=== PATIENT | female | born 1985 | race Caucasian/White ===

== ENCOUNTER 2018-08-03 18:34 | Emergency (ER) | payer MEDICAID ==
[2018-08-03 18:54] VITALS: BP 125/75
[2018-08-03] MEDS ORDERED: Albuterol/Ipratropium 3.0-0.5 MG/3 ML Neb Soln NEB ONE (19:05)
--- NOTE | 2018-08-03 19:16 | EDM.PDOC ---
ED HPI GENERAL MEDICAL PROBLEM - General Chief Complaint: Respiratory Problem Stated Complaint: SOB Time Seen by Provider: 08/03/18 18:55 Source of Information: Reports: Patient History Limitations: Reports: No Limitations - History of Present Illness INITIAL COMMENTS - FREE TEXT/NARRATIVE: 32-year-old female who is been short of breath and wheezing for the last 4 days , no significant cold symptoms but has a persistent cough and generalized body aches. Denies nausea or vomiting. She ran out of her inhaler 2 weeks ago, she typically goes through 3 albuterol inhalers per year and does not use them every day. She is a smoker. Onset: Gradual Duration: Day(s): (4 days) Associated Symptoms: Reports: Cough, Shortness of Breath, Other (Generalized body aches) denies pain Pain Score (Numeric/FACES): 0 - Related Data Allergies Allergy/AdvReac Type Severity Reaction Status Date / Time naproxen Allergy Vomiting Verified 08/03/18 18:53 Home Meds: Home Meds Naproxen Sodium [Aleve] 220 mg PO Q3HR 11/19/14 [History] Past Medical History HEENT History: Reports: Impaired Vision, Other (See Below) Other HEENT History: tooth pain, ? 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 DOCKWORKER History: 3 live births Musculoskeletal History: Reports: Fracture, Other (See Below) Other Musculoskeletal History: broken right ankle - Past Surgical History Musculoskeletal Surgical History: Reports: Other (See Below) Other Musculoskeletal Surgeries/Procedures:: ankle surgery Social & Family History - Tobacco Use Smoking Status *Q: Current Every Day Smoker Years of Tobacco use: 16 Packs/Tins Daily: 1.5 - Caffeine Use Caffeine Use: Reports: Coffee, Energy Drinks - Recreational Drug Use Recreational Drug Use: Yes Drug Use in Last 12 Months: No Recreational Drug Type: Reports: Marijuana/Hashish ED ROS GENERAL - Review of Systems Review Of Systems: See Below Constitutional: Reports: Malaise. Denies: Fever, Chills HEENT: Denies: Ear Pain, Throat Pain Respiratory: Reports: Shortness of Breath, Wheezing, Cough. Denies: Sputum Cardiovascular: Denies: Chest Pain : Reports: No Symptoms Musculoskeletal: Reports: Muscle Pain (Generalized muscle aches) Skin: Reports: No Symptoms Neurological: Denies: Headache ED EXAM, GENERAL - Physical Exam Exam: See Below Exam Limited By: No Limitations General Appearance: Alert, No Apparent Distress Nose: Normal Inspection Throat/Mouth: Normal Inspection Respiratory/Chest: No Respiratory Distress, Wheezing Cardiovascular: Regular Rate, Rhythm, Tachycardia Extremities: Normal Inspection Neurological: Alert, Oriented Psychiatric: Normal Affect, Normal Mood Skin Exam: Warm, Dry Course - Vital Signs Last Recorded V/S: Last Vital Signs Temp 96.8 F 08/03/18 18:55 Pulse 112 H 08/03/18 18:55 Resp 24 H 08/03/18 18:55 BP 125/75 08/03/18 18:55 Pulse Ox 94 L 08/03/18 18:55 - Orders/Labs/Meds Orders: Active Orders 24 hr Category Date Time Status RT Aerosol Therapy [RC] ASDIRECTED Care 08/03/18 19:05 Active Meds: Medications Discontinued Medications Generic Name Dose Route Start Last Admin Trade Name Freq PRN Reason Stop Dose Admin Albuterol/Ipratropium 3 ml 08/03/18 19:05 08/03/18 19:13 Duoneb 3.0-0.5 Mg/3 Ml NEB 08/03/18 19:06 3 ml ONETIME ONE Administration Methylprednisolone Sodium Succinate 125 mg 08/03/18 19:34 08/03/18 19:51 Solu-Medrol IVPUSH 08/03/18 19:35 125 mg ONETIME ONE Administration - Re-Assessments/Exams Free Text/Narrative Re-Assessment/Exam: 08/03/18 19:17 Duoneb. 08/03/18 19:53 Patient had significant improvement after the DuoNeb but still some wheezing and discomfort. She was given 125 mg of IV Solu-Medrol, and will be discharged on 50 mg of prednisone daily for the next 3-6 days. Also given a fresh albuterol inhaler. She can return if worsening despite treatment Departure - Departure Time of Disposition: 20:33 Disposition: Home, Self-Care 01 Condition: Good Clinical Impression: Asthma with exacerbation Qualifiers: Asthma severity: moderate Asthma persistence: persistent Qualified Code(s): J45.41 - Moderate persistent asthma with (acute) exacerbation - Discharge Information Instructions: Asthma, Adult, [id number] Referrals: Bar Castano MD [Primary Care Provider] - Forms: ED Department Discharge Care Plan Goals: Take 5 pills of prednisone with your first meal of the day for the next 3-6 days. Use your inhaler as needed. Return if worsening despite treatment. - My Orders Last 24 Hours: My Active Orders 08/03/18 19:05 RT Aerosol Therapy [RC] ASDIRECTED - Assessment/Plan Last 24 Hours: My Active Orders 08/03/18 19:05 RT Aerosol Therapy [RC] ASDIRECTED
[2018-08-03] MEDS ORDERED: methylPREDNISolone Sodium Succinate 125 MG/2 ML SDV IVPUSH ONE (19:34)
--- NOTE | 2018-08-03 19:36 | CRLCR ---
Indication: Shortness of breath. Technique: PA and lateral views the chest were obtained. Comparison: None Findings: The heart is normal in size. The lungs are clear. No infiltrate, pleural effusion, or pneumothorax is identified. Impression: No acute cardiopulmonary process. Dictated by Alysha Matamoros MD @ Aug 03 2018 7:33PM Signed by Dr. Alysha Matamoros @ Aug 03 2018 7:34PM
== END 2018-08-03 20:33 | disposition home or self-care (01) ==
LOC: JP.ED 18:34
DX: J45.41 Moderate persistent asthma with (acute) exacerbation (principal); F17.210 Nicotine dependence, cigarettes, uncomplicated; Z88.8 Allergy status to other drugs, medicaments and biological substances
CPT/HCPCS: 71046; 87804; 94640; 96374; 99285; J2930; J7620-GY

== ENCOUNTER 2020-02-11 18:12 | Emergency (ER) | payer MEDICAID ==
[2020-02-11 18:50] VITALS: BP 136/89; PULSE 103
[2020-02-11] MEDS ORDERED: HYDROmorphone 0.5 MG/0.5 ML Syringe IM ONE (18:57)
--- NOTE | 2020-02-11 19:01 | EDM.PDOC ---
ED HPI GENERAL MEDICAL PROBLEM - General Chief Complaint: ENT Problem Stated Complaint: MOUTH PAIN Time Seen by Provider: 02/11/20 18:15 Source of Information: Reports: Patient History Limitations: Reports: No Limitations - History of Present Illness INITIAL COMMENTS - FREE TEXT/NARRATIVE: chief complaint: dental abscess This is a 34 year old female present to ER with her SO, reports 3 days ago ate a potato chip and the chip got lodged in behind her tooth. now has a lump on the roof of her mouth. very painful. Onset: Gradual Duration: Day(s): (3) Location: Reports: Face (dental abscess) Quality: Reports: Ache, Throbbing Improves with: Reports: None Worsens with: Reports: None Associated Symptoms: Reports: No Other Symptoms Right Upper Jaw Pain Score (Numeric/FACES): 10 - Related Data Allergies Allergy/AdvReac Type Severity Reaction Status Date / Time naproxen Allergy Vomiting Verified 08/03/18 18:53 Home Meds: Home Meds Naproxen Sodium [Aleve] 220 mg PO Q3HR PRN 11/19/14 [History] Acetaminophen [Mapap] 1,500 mg PO Q6H PRN 02/11/20 [History] Albuterol Sulfate [Albuterol Sulfate Hfa] 8.5 gm IH Q4H PRN 02/11/20 [History] Past Medical History HEENT History: Reports: Impaired Vision, Other (See Below) Other HEENT History: tooth pain, ? 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 CLERK History: 3 live births Musculoskeletal History: Reports: Fracture, Other (See Below) Other Musculoskeletal History: broken right ankle - Past Surgical History Musculoskeletal Surgical History: Reports: Other (See Below) Other Musculoskeletal Surgeries/Procedures:: ankle surgery Social & Family History - Tobacco Use Smoking Status *Q: Current Every Day Smoker Years of Tobacco use: 15 Packs/Tins Daily: 0.7 - Caffeine Use Caffeine Use: Reports: Coffee, Energy Drinks - Recreational Drug Use Recreational Drug Use: No - Living Situation & Occupation Living situation: Reports: with Significant Other (stay at home Mom.) ED ROS ENT - Review of Systems Review Of Systems: See Below Constitutional: Reports: Other (dental pain) HEENT: Reports: Dental Pain, Sinus Problem (right sinus is painful. ) Respiratory: Reports: No Symptoms Cardiovascular: Reports: No Symptoms Endocrine: Reports: No Symptoms Musculoskeletal: Reports: No Symptoms Skin: Reports: No Symptoms Neurological: Reports: No Symptoms Psychiatric: Reports: No Symptoms Hematologic/Lymphatic: Reports: No Symptoms Immunologic: Reports: No Symptoms ED EXAM, ENT - Physical Exam Exam: See Below Exam Limited By: No Limitations General Appearance: Alert, WD/WN, Anxious, Mild Distress Eye Exam: Bilateral Eye: Normal Inspection Ears: Normal External Exam Nose: Normal Inspection, Other (right maxillary sinus pain without facial edema, redness) Mouth/Throat: Normal Lips, Dental Abcess, Dental Pain, Dental Tenderness, Other (large cavity noted to rigth molars. teeth in with multi cavities. ) Head: Atraumatic, Normocephalic, Facial Tenderness (right maxillary sinus) Neck: Normal Inspection, Supple, Non-Tender, Full Range of Motion Respiratory/Chest: No Respiratory Distress Neurological: Alert, Oriented, CN II-XII Intact, Normal Cognition, Normal Gait, Normal Reflexes, No Motor/Sensory Deficits Psychiatric: Normal Affect, Normal Mood Skin: Warm, Dry, Intact, Normal Color, No Rash Lymphatic: No Adenopathy ED ENT PROCEDURES - Additional/Other Procedure(s) Other (Free Text) Procedure(s): dental abscess to hard palate -discussed procedure with Ms. Reneemirna, agrees to I&D -pre-medicated with Dilaudid 0.5mg IM -Tdap within the past 10 years. -size 1 cm raised oblong shape, firm and tender to palpation -injected with 1 ml of Lidocaine 1 % without eppi -lanced with #11 blade scalpel, immediate release of mucopurulent discharge 2-3 ml -scant bleeding discussed medications and follow up care. plans to follow up with Dental Clinic in morning. Course - Vital Signs Last Recorded V/S: Last Vital Signs Temp 36.1 C 02/11/20 18:40 Pulse 103 H 02/11/20 18:40 Resp 16 02/11/20 18:40 BP 136/89 02/11/20 18:40 Pulse Ox 97 02/11/20 18:40 - Orders/Labs/Meds Meds: Medications Discontinued Medications Generic Name Dose Route Start Last Admin Trade Name Freq PRN Reason Stop Dose Admin Hydromorphone HCl 0.5 mg 02/11/20 18:57 Dilaudid IM 08/18/20 18:58 ONETIME ONE Lidocaine HCl 5 ml 02/11/20 18:55 02/11/20 19:03 Xylocaine-Mpf 1% INJECT 02/11/20 18:56 1 ml ONETIME ONE Administration - Re-Assessments/Exams Free Text/Narrative Re-Assessment/Exam: 02/11/20 19:26 I&D- pressure released, feeling better. Departure - Departure Time of Disposition: 19:27 Disposition: Home, Self-Care 01 Condition: Good Clinical Impression: Dental abscess - Discharge Information *PRESCRIPTION DRUG MONITORING PROGRAM REVIEWED*: Not Applicable *COPY OF PRESCRIPTION DRUG MONITORING REPORT IN PATIENT SUYAPA: Not Applicable Instructions: Dental Abscess, [id number] Referrals: Keyla Osorio CNM [Primary Care Provider] - Forms: ED Department Discharge Care Plan Goals: Dental Abscess -Augmentin 875 mg po two times a day for 10 days -Hydrocodone 5-325mg take one every 4 to 6 hours as needed for pain #6 -Referral to Dental Clinic in am for evaluation by Dentist -soft diet -take medication as directed -return to ER for increased pain,fever, facial swelling, nausea, vomiting or not improved. Sepsis Event Note (ED) - Evaluation Sepsis Screening Result: No Definite Risk - Focused Exam Vital Signs: Vital Signs Temp Pulse Resp BP Pulse Ox 02/11/20 18:40 36.1 C 103 H 16 136/89 97 - Problem List & Annotations (1) Dental abscess SNOMED Code(s): 950734382 Code(s): K04.7 - PERIAPICAL ABSCESS WITHOUT SINUS Status: Acute Priority: High Current Visit: Yes - Problem List Review Problem List Initiated/Reviewed/Updated: Yes - Assessment/Plan Plan: Dental Abscess -Augmentin 875 mg po two times a day for 10 days -Hydrocodone 5-325mg take one every 4 to 6 hours as needed for pain #6 -Referral to Dental Clinic in am for evaluation by Dentist -soft diet -rinse mouth every 1-2 hours with warm salt water rinses for comfort -take medication as directed -return to ER for increased pain,fever, facial swelling, nausea, vomiting or not improved.
== END 2020-02-11 19:30 | disposition home or self-care (01) ==
LOC: JP.ED 18:12
DX: K04.7 Periapical abscess without sinus (principal); J45.909 Unspecified asthma, uncomplicated; F17.210 Nicotine dependence, cigarettes, uncomplicated; Z88.8 Allergy status to other drugs, medicaments and biological substances
CPT/HCPCS: 42000; 96372; 99282; 99283; J1170; J2001

== ENCOUNTER 2022-10-02 19:17 | Observation (INO) | payer OTHER, MEDICAID ==
[2022-10-02] MEDS ORDERED: Sodium Chloride 0.9% 10 ML Syringe FLUSH PRN (19:22)
[2022-10-02] MEDS ORDERED: Propofol 200 MG/20 ML SDV ONE (20:18)
[2022-10-02] MEDS ORDERED: Pantoprazole 40 MG Vial IV ONE (21:01)
[2022-10-02] MEDS ORDERED: Acetaminophen 325 MG Tab PO PRN (21:01)
[2022-10-02] MEDS ORDERED: Docusate Sodium 100 MG Cap PO PRN (21:01)
[2022-10-02] MEDS ORDERED: LORazepam 2 MG/ML SDV IV PRN (21:01)
[2022-10-02] MEDS ORDERED: Ondansetron 4 MG Tab.DIS PO PRN (21:01)
[2022-10-02] MEDS ORDERED: Albuterol/Ipratropium 3.0-0.5 MG/3 ML Neb Soln NEB PRN (21:01)
[2022-10-02] MEDS ORDERED: Albuterol 0.083% 2.5 MG/3 ML Neb Soln NEB PRN (21:01)
[2022-10-02 21:07] LABS: CORONAVIRUS COVID-19 NAA NEGATIVE (NEGATIVE)
[2022-10-02] MEDS ORDERED: Melatonin 3 MG Tab PO PRN (21:09)
[2022-10-02] MEDS ORDERED: Sodium Chloride 0.9% 1,000 ML IV SCH (21:15)
[2022-10-02] MEDS: oxyCODONE 5 MG Tab PO PRN (22:18)
[2022-10-03] MEDS: fentaNYL 50 MCG/ML SDV IVPUSH PRN ×2 (00:03→05:42)
[2022-10-03] MEDS: oxyCODONE 5 MG Tab PO PRN ×2 (02:29→07:18)
[2022-10-03] MEDS ORDERED: ceFAZolin 2 GM in Premix Bag 1 BAG IV ONE (09:00)
[2022-10-03] MEDS ORDERED: Propofol 200 MG/20 ML SDV ONE (09:03)
[2022-10-03] MEDS ORDERED: Glycopyrrolate 0.2 MG/ML 5 ML MDV ONE (09:03)
[2022-10-03] MEDS ORDERED: fentaNYL 250 MCG/5 ML SDV ONE ×2 (09:03→10:39)
[2022-10-03] MEDS ORDERED: Neostigmine Methylsulfate 1 MG/ML 5 ML Syringe ONE (09:03)
[2022-10-03] MEDS ORDERED: Rocuronium 50 MG/5 ML Vial ONE (09:03)
[2022-10-03] MEDS ORDERED: Dexamethasone 4 MG/ML SDV ONE (09:03)
[2022-10-03] MEDS ORDERED: Ondansetron 4 MG/2 ML SDV ONE (09:03)
[2022-10-03] MEDS ORDERED: ceFAZolin 2 GM in Sodium Chloride 0.9% 50 ML IV ONE (09:04)
[2022-10-03] MEDS ORDERED: Bupivacaine 0.5% 30 ML SDV ONE (09:29)
[2022-10-03] MEDS ORDERED: Albuterol/Ipratropium 3.0-0.5 MG/3 ML Neb Soln NEB ONE (10:05)
[2022-10-03] MEDS ORDERED: Labetalol 20 MG/4 ML Syringe ONE (10:32)
[2022-10-03] MEDS ORDERED: Lactated Ringers 1,000 ML ONE (10:44)
[2022-10-03] MEDS ORDERED: Bupivacaine 0.5% 30 ML SDV INJECT ONE (12:00)
[2022-10-03] MEDS ORDERED: Sodium Chloride 0.9% 1,000 ML IV SCH (12:45)
[2022-10-03 13:38] VITALS: BP 114/86; PULSE 100
== END 2022-10-03 15:00 | disposition home or self-care (01) ==
LOC: JP.ED 19:17 → JP.MS 20:59
PROVIDERS: ADMIT Internal Medicine; ATTEND Specialist
DX: S82.842A Displaced bimalleolar fracture of left lower leg, initial encounter for closed fracture (principal); S93.432A Sprain of tibiofibular ligament of left ankle, initial encounter; F17.210 Nicotine dependence, cigarettes, uncomplicated; J45.20 Mild intermittent asthma, uncomplicated; Z79.899 Other long term (current) drug therapy; Z88.6 Allergy status to analgesic agent; Z98.890 Other specified postprocedural states; Z20.822 Contact with and (suspected) exposure to COVID-19; V49.9XXA Car occupant (driver) (passenger) injured in unspecified traffic accident, initial encounter
CPT/HCPCS: 0241U; 27788; 29515; 36415; 73600; 76000; 80048; 80305; 80307; 85025; 94640; 96365; 96375; 96376; 97116; 97161; 99285; A9270; C1713; C1776; C9113; G0378; J0690; J1100; J2405; J2704; J2710; J3010; J3490; J7030; J7120; J7620